=== PATIENT | female | born 1970 | race Caucasian/White ===

== ENCOUNTER → 2016-04-11 | Day surgery (SDC) | payer OTHER ==
[~2016-04-11] MED LIST: BUPIVACAINE/EPINEPHRINE 0.5% 50 ML VIAL ONE; KETOROLAC TROMETHAMINE 30 MG/ML (IVP) VIAL IV PUSH ONE; LACTATED RINGER'S 1000 ML INJ 1,000 ML ONE; MEPERIDINE HCL 25 MG/ML VIAL ONE; MIDAZOLAM HCL 2 MG/2 ML VIAL ONE; ONDANSETRON HCL 4 MG/2 ML VIAL IV PUSH ONE; PROPOFOL 200 MG/20 ML AMP IV ONE; ceFAZolin 2 GM PREMIX 50 ML ONE
--- NOTE | 2016-04-14 11:55 | MP ---
cc: SAHIL GRANDE M.D. 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 PROCEDURE Right ankle extensive debridement of the tibiotalar joint including posterior capsular margin of the tibia, medial gutter, anterior joint space, anterior neck of the talus, anterior lateral joint line including anterior lateral ganglion cyst. ANESTHETIC General. SURGEON Sahil Grande MD [employer] PROFESSOR SURGEON BABS Dao, ESTIMATED BLOOD LOSS Minimal. SPECIMEN None. COMPLICATIONS None known. TOURNIQUET TIME 65 minutes at 300 mmHg. INDICATION Jacque Gallegos is a 45-year-old female with chronic right ankle pain which showed only mild instability on stress views of the ankle which did show abnormality on MRI scan and ultimately based on the chronicity of symptoms and the failure to improve with conservative management she is offered arthroscopic surgery for this problem. The risks and benefits were thoroughly discussed in detail. Informed consent has been obtained. No guarantees are offered. The airplane first officer, Kendall Purvis, is an advanced registered nurse practitioner who sub-specializes in orthopedic surgery. His skill set was medically necessary for the performance of the operation. He assisted with helping with adjusting position of the ankle joint, dorsiflexion, plantar flexion, holding the arthroscope and helping with the arthroscopic instrumentation to allow the undersigned to use two hands to perform the delicate portions of the operation. PROCEDURE The patient was brought to the operating room. She was placed under general anesthetic. The right lower extremity was draped and prepped in the usual sterile fashion. IV antibiotics were given. Time-out was completed. The limb was exsanguinated, the tourniquet inflated and then traction was applied using the ankle distractor from [employer]. We proceeded to inject at the level the ankle joint anterior medially with Marcaine with epinephrine including injecting into the joint to insufflate that and then making a small skin incision and using a hemostat to spread and then a blunt trocar to introduce the cannula for the 4-0 scope. The ankle joint was filled with saline to expand the joint and then we made our inferior lateral portal in a similar fashion. We noted the multiple areas of frayed tissue primarily in the anterior capsular region of the joint but also the capsular attachment to the ankle joint. There was some hypertrophic synovial changes the medial gutter and the lateral gutter and there was a fullness consistent with the ganglion cyst, although no separate full ganglion cyst specimen was excised but rather debrided with the shaver and this is just anterior to the talofibular ligament. We proceeded with photographing the joint, the multiple abnormalities and then [id number], [id number] debriding posteriorly and then anteriorly, then all along the anterior neck and then anterior laterally and then switching over a switching stick to fine-tune and evaluate from the lateral visualization portal and then to come in and debride medially. We did have some exposed bone on the anterior medial aspect of the fibula as well with some delaminating cartilage in this area and we debrided all of this and then fine-tuned to evaluate the anterior neck region, obtaining meticulous hemostasis in the lateral gutter region and then switching back again with the scope from the medial portal and fine-tuning and evaluating laterally and excising the ganglion cyst. The tourniquet time was over an hour. We ended by obtaining hemostasis throughout and then the arthroscopic equipment was removed and then we closed the portals with nylon sutures and 4x4s were applied and Sof-Rol applied, sugar-tong splint applied and an Gaurav wrap applied. The tourniquet was let down. The patient was awoken and returned to the recovery room in stable condition. MD QUINTON Cotto/HOLGER /11:34 AM /11:42 AM
== END | disposition home or self-care (01) ==
LOC: ESDC 08:10
PROVIDERS: ATTEND Orthopaedic Surgery Sports Medicine
DX: M67.471 Ganglion, right ankle and foot (principal); M25.571 Pain in right ankle and joints of right foot; M94.271 Chondromalacia, right ankle and joints of right foot
CPT/HCPCS: 01464; 29898; J0690; J1885; J2175; J2250; J2405; J3010; J7120